=== PATIENT | male | born 1965 | race Two or more races ===

== ENCOUNTER 2018-06-27 09:00 | Inpatient (IN) | payer OTHER ==
[~2018-06-27] VITALS: Ht 182.9 cm; Wt 82.6 kg
[~2018-06-27 09:00] MED LIST: CLONAZEPAM1 MG PO; CLONAZEPAM2 MG PO; DOCUSATE SODIU100 MG PO; NEURONTIN600 MG PO; PERCOCET 5/3251 TAB PO; PROTONIX40 MG PO; TIZANIDINE HCL4 M1 PO; ULTRAM50 MG PO; XANAX0.25 MG PO; ZOLOFT20 MG/ML PO
[2018-06-27] MEDS ORDERED: SEROQ PO (13:05)
[2018-06-27] MEDS ORDERED: GABAPENTIN PO (13:06)
[2018-07-05] MEDS ORDERED: CLONAZEPAM1 MG PO (14:49)
[2018-07-05] MEDS ORDERED: PERCOCET 5-3251 EACH PO (14:49)
[2018-07-05] MEDS ORDERED: AMOX-CLAV 875-1 EACH PO (14:49)
[2018-07-05] MEDS ORDERED: GABAPENTIN800 MG PO (14:49)
[2018-07-05] MEDS ORDERED: DOCUSATE SODIU100 MG PO (14:49)
== END 2018-07-06 18:39 | disposition home or self-care (01) | DRG 455 ==
LOC: O/R 07-05 04:34 → SURH 07-05 04:34 → SURG 07-05 15:45 → SURH 07-05 15:53
PROVIDERS: ADMIT Orthopaedic Surgery Orthopaedic Surgery of the Spine
PROC: 0SG1071 Fusion of 2 or more Lumbar Vertebral Joints with Autologous Tissue Substitute, Posterior Approach, Posterior Column, Open Approach (ICD-10-PCS; 2018-07-05)
PROC: 0ST20ZZ Resection of Lumbar Vertebral Disc, Open Approach (ICD-10-PCS; 2018-07-05)
PROC: 0SG10AJ Fusion of 2 or more Lumbar Vertebral Joints with Interbody Fusion Device, Posterior Approach, Anterior Column, Open Approach (ICD-10-PCS; 2018-07-05)
PROC: 07DS0ZZ Extraction of Vertebral Bone Marrow, Open Approach (ICD-10-PCS; 2018-07-05)
PROC: 4A12X4Z Monitoring of Cardiac Electrical Activity, External Approach (ICD-10-PCS; 2018-07-05)
PROC: 0SG10A0 Fusion of 2 or more Lumbar Vertebral Joints with Interbody Fusion Device, Anterior Approach, Anterior Column, Open Approach (ICD-10-PCS; principal; 2018-07-05 09:45)
DX: M47.26 Other spondylosis with radiculopathy, lumbar region (principal); M48.062 Spinal stenosis, lumbar region with neurogenic claudication; M51.16 Intervertebral disc disorders with radiculopathy, lumbar region